=== PATIENT | male | born 1935 | race Caucasian/White ===

== ENCOUNTER → 2020-02-19 11:28 | Outpatient (CLI) | payer MEDICARE, SELFPAY ==
--- NOTE | 2020-02-19 11:33 | DI.RAD.S_ITS ---
PROCEDURE: XR LUMBAR SPINE MIN 4V INDICATIONS: update imaging TECHNIQUE: 5 views of the lumbar spine were acquired. COMPARISON: [facility], [place], XR LUMBAR SPINE WITH OBLIQUES, 02/08/2017, 9:06. FINDINGS: Bones: Kyphoplasty of the L2 vertebral body. Remaining vertebral body heights grossly preserved. Multilevel degenerative endplate sclerosis and spurring. Diffuse facet arthropathy. Moderate narrowing of the L5-S1 disc space. Diffuse mild narrowing of the remaining lumbar disc spaces. Soft tissues: Scattered vascular calcifications in the aorta. Oblique images: No pars defects. IMPRESSION: L2 kyphoplasty. Diffuse lumbar spondylosis with no definite interval change since 02/08/17. Multilevel facet arthropathy appears progressed. Dictated by: Brandon Hall M.D. on 02/19/2020 at 12:30 Approved by: Brandon Hall M.D. on 02/19/2020 at 12:33
== END ==
PROVIDERS: PCP Family Medicine; Referring Provider Physical Medicine & Rehabilitation; Visit Provider Physical Medicine & Rehabilitation
DX: M47.817 Spondylosis without myelopathy or radiculopathy, lumbosacral region (principal); M46.96 Unspecified inflammatory spondylopathy, lumbar region
CPT/HCPCS: 72110

== ENCOUNTER → 2020-05-05 14:30 | Outpatient (CLI) | payer MEDICARE, SELFPAY ==
[2020-05-05 16:28] LABS: COVID19 -Nasal RAPID Negative (Negative)
== END ==
PROVIDERS: PCP Family Medicine; Visit Provider Physical Medicine & Rehabilitation
DX: Z20.822 Contact with and (suspected) exposure to COVID-19 (principal)
CPT/HCPCS: 87635; C9803

== ENCOUNTER 2020-05-06 07:47 | Outpatient (CLI) | payer MEDICARE, SELFPAY ==
[2020-05-06] VITALS (9 sets, daily range): BP systolic 126–166; BP diastolic 68–86; PULSE 66–86; RESP 13–23; TEMP 36.3; O2SAT 96–100
--- NOTE | 2020-05-06 07:50 | DI.RAD.S_ITS ---
PROCEDURE: PAIN L/S FACET INJ/BLK 1ST CECILIA COMPARISON: None. INDICATIONS: SPONDYLOSIS Fluoroscopic spot filming was performed to verify placement of spinal needles at the L4-L5 and L5-S1 level(s), as labeled on the films. Appropriate location(s) of the needle tip(s) was confirmed by injection of iodinated contrast. Dictated by: Brandon Hall M.D. on 05/06/2020 at 10:45 Approved by: Brandon Hall M.D. on 05/06/2020 at 10:46
[2020-05-06] MEDS: MIDAZOLAM 5 MG/5 ML VIAL IV (09:20)
[2020-05-06] MEDS: BUPIVACAINE 0.5% (PF) VIAL 5 ML INJ (09:23)
[2020-05-06] MEDS: LIDOCAINE 1% 20 ML INJ (09:23)
[2020-05-06] MEDS: IOPAMIDOL 15 ML VIAL 3 ML INJ (09:24)
[2020-05-06] MEDS: BETAMETHASONE 30 MG/5 ML MDV 6 MG INJ (09:25)
--- NOTE | 2020-05-06 09:37 | P.PCN_ITS ---
Date/Time/Diagnoses Date of procedure: 05/06/20 Time of procedure: 09:37 Pre-procedure diagnosis: 1. FACET ARTHROPATHY 2. AXIAL LBP 3. MULTILEVEL DDD Post-procedure diagnosis: same Procedure Notes Procedure: 1. FLUOROSCOPICALLY GUIDED CONTRAST CONTROLLED FACET JOINT INJECTIONS BILATERAL L4/5, L5/S1 Indications: Alverto is referred by Dr. Vivar for treatment of Axial LBP Physician: Manpreet Concepcion Total Fluoroscopy time (seconds): 10 Total sedation minutes: 10 Complications: none Procedure in detail & Post-procedure care: FINDINGS Multilevel Facet Arthropathy with Clinically significant axial LBP DESCRIPTION OF PROCEDURE Fluoroscopically guided, contrast-controlled bilateral L4/5, L5/S1 facet joint injections. Following review of allergy and review of potential side effects and complications, including, but not necessarily limited to, infection, allergic reaction, local tissue breakdown, stroke, temporary or permanent nerve injury, paralysis, and possible , the patient indicated that the patient understood and agreed to proceed. An informed consent document was signed by the patient, witnessed by a nurse, and placed in the patient's chart. Additionally, other treatment options including medications, modalities, and physical therapy were reviewed with the patient. After review of previous anaesthesic history and IV conscious sedation the patient was deemed safe to proceed with today?s procedure with IV conscious sedation as ASA class II designation. Safety time-out was performed to confirm patient ID, procedure to be performed and site of procedure. IV sedation was accomplished with a combination of 2mg of Versed and 50mcg of Fentanyl was administered by the RN after DO order, titrated to patient comfort during the course of the procedure while the patient remained responsive to all verbal commands In the prone position, following sterile prep and drape of the lumbar region, the posterior aspect of the L4/5, L5/S1 facet joints were identified fluoroscopically. The skin was anesthetized via a 25-gauge 1.5inch needle with 1% lidocaine solution into the corresponding facet joints. At this point, a 22- gauge 3.5-inch spinal needle was atraumatically introduced and advanced under fluoroscopic guidance into the corresponding facet joints. Following negative aspiration, injections of approximately 0.2cc of Isovue 200 confirmed i nterarticular placement without vascular uptake. The identical procedure was then performed at the L4/5, L5/S1 facet joints on the left. Radiological data, including multiple fluoroscopic views of the lumbosacral spine, reveal a spinal needle at the L4/5, L5/S1 facet joints bilaterally. Subsequent views show flow of contrast material both superiorly and inferiorly within the joint space without vascular or intrathecal uptake. At this point, a total of 0.5cc including a mixture of 0.25cc Marcaine and 0.25cc betamethasone was injected without complication into each of the corresponding facet joints. The patient tolerated the procedure well without signs or symptoms of complications prior to transfer to the recovery area continued monitoring without incident. The patient was then transferred to the recovery area where they were observed for an appropriate period of time after the injection. The patient reported a VAS score of 7 prior to the procedure and a post- procedure VAS of 0. POST OP INSTRUCTIONS The patient was provided a Pain Log to continue to record their response to the target-specific procedure prior to follow-up visit with their referring physician. Additionally, specific post-injection care instructions and a contact number to our office were provided if concerns arise regarding possible complications associated with the procedure are suspected.
== END 2020-05-06 09:50 | disposition home or self-care (01) ==
LOC: RAD 07:49
PROVIDERS: PCP Family Medicine; Referring Provider Family Medicine; Visit Provider Physical Medicine & Rehabilitation
DX: M47.816 Spondylosis without myelopathy or radiculopathy, lumbar region (principal); M47.817 Spondylosis without myelopathy or radiculopathy, lumbosacral region; M51.36 Other intervertebral disc degeneration, lumbar region; M51.37 Other intervertebral disc degeneration, lumbosacral region; M54.5 Low back pain
CPT/HCPCS: 64493; 64494; 99152; J0702; J2250; J3010

== ENCOUNTER → 2020-08-04 09:34 | Outpatient (CLI) | payer MEDICARE, SELFPAY ==
[2020-08-04 12:57] LABS: COVID19 -Nasal RAPID Negative (Negative)
== END ==
PROVIDERS: PCP Family Medicine; Visit Provider Student in an Organized Health Care Education/Training Program
DX: Z20.822 Contact with and (suspected) exposure to COVID-19 (principal); Z01.812 Encounter for preprocedural laboratory examination
CPT/HCPCS: 87635; C9803

== ENCOUNTER 2020-08-05 12:26 | Outpatient (CLI) | payer MEDICARE, SELFPAY ==
[2020-08-05] VITALS (8 sets, daily range): BP systolic 138–159; BP diastolic 73–96; PULSE 66–74; RESP 16–25; TEMP 36.8; O2SAT 95–97
--- NOTE | 2020-08-05 12:28 | DI.RAD.S_ITS ---
PROCEDURE: PAIN L INTERLAMINAR/CAUDAL INJ INDICATIONS: SPONDYLOSIS COMPARISON: [facility], [place], PAIN L/S FACET INJ/BLK 1ST CECILIA, 05/06/2020, 9:20. FINDINGS: Fluoroscopic spot filming was performed to verify placement of a spinal needle. The images are labeled as L5-S1, although by anatomic landmarks, this appears to be at the L4-L5 level. Please correlate with intraprocedural findings. Appropriate location(s) of the needle tip(s) was confirmed by injection of iodinated contrast. IMPRESSION: Lower lumbar spine epidural steroid injection. Dictated by: Mars Winston M.D. on 08/05/2020 at 16:12 Approved by: Mars Winston M.D. on 08/05/2020 at 16:14
--- NOTE | 2020-08-05 12:41 | PC.NURSE ---
Pt took 325mg ASA two days ago. Aware of instructions given prior to procedure. Notified on admission paperwork for Dr Concepcion.
[2020-08-05] MEDS: MIDAZOLAM 5 MG/5 ML VIAL IV (13:15)
[2020-08-05] MEDS: fentaNYL 100 MCG/2 ML INJ 50 MCG IV (13:15)
[2020-08-05] MEDS: BUPIVACAINE 0.25% (PF) VIAL 2 ML INJ (13:19)
[2020-08-05] MEDS: IOPAMIDOL 15 ML VIAL 3 ML INJ (13:19)
[2020-08-05] MEDS: DEXAMETHASONE 10 MG/ML VIAL 20 MG INJ (13:19)
[2020-08-05] MEDS: methylPREDNISolone acetate 80 MG/ML VIAL INJ (13:20)
--- NOTE | 2020-08-05 13:26 | PM.PROC.IR.1 ---
Date/Time/Diagnoses Date of procedure: 08/05/20 Time of procedure: 13:26 Pre-procedure diagnosis: 1. HNP WITH RADICULAR FEATURES, 2. MULTILEVEL CENTRAL STENOSIS, Post-procedure diagnosis: same Procedure Notes Procedure: 1. FLUOROSCOPICALLY GUIDED CONTRAST CONTROLLED INTERLAMINAR EPIDURAL STEROID INJECTION - L5/S1 Indications: Alverto is referred by Dr. Vivar for treatment of Bilateral Foraminal Stenosis L>R LE symptoms. Physician: Manpreet Concepcion Total Fluoroscopy time (seconds): 9 Total sedation minutes: 9 Complications: none Procedure in detail & Post-procedure care: FINDINGS Multilevel Central Spinal Stenosis with Nerve Root Compression DESCRIPTION OF PROCEDURE Fluoroscopically guided, contrast-controlled L5/S1 translaminar epidural steroid injection. Following review of allergy and review of potential side effects and complications, including, but not necessarily limited to, infection, allergic reaction, local tissue breakdown, temporary as well as permanent nerve injury, paralysis, stroke and possible , the patient indicated that the patient understood and agreed to proceed. An informed consent document was signed by the patient, witnessed by a nurse, and placed in the patient's chart. Additionally, other treatment options including modalities, medications, and physical therapy were reviewed with the patient. After review of previous anaesthesic history and IV conscious sedation the patient was deemed safe to proceed with today?s procedure with IV conscious sedation as ASA class II designation. Safety time-out was performed to confirm patient ID, procedure to be performed and site of procedure. IV sedation was accomplished with a combination of 2mg of Versed and 50mcg of Fentanyl administered by the RN after DO order, titrated to patient comfort during the course of the procedure while the patient remained responsive to all verbal commands. In the prone position, following sterile prep and drape of the lumbar region, the L5/S1 translaminar space was identified fluoroscopically. The skin was anesthetized via a 25-gauge, 1.5-inch needle with 1% lidocaine solution. At this point, a 22-gauge short bevel spinal needle was atraumatically introduced and advanced under fluoroscopic guidance into the region of the L5/S1 translaminar space. Depth was confirmed on lateral view. Radiological data, including multiple fluoroscopic views of the lumbar spine, reveal a spinal needle at the L5/S1 translaminar space. Lateral views then show placement of the needle in the epidural space. Subsequent views show contrast material flowing superiorly and inferiorly in the epidural space. No vascular or intrathecal uptake is observed. At this point, using loss of resistance technique with saline and air, the epidural space was entered. This was confirmed following negative aspiration with injection of approximately 1.5cc of Isovue 200, showing excellent epidural flow without vascular or intrathecal uptake. At this point, 1 cc of 1% lidocaine solution combined with 3cc or 20mg of dexamethasone and 80mg of depo medrol was injected without incident. The patent tolerated the procedure without signs of symptoms of complications prior to transfer to the recovery area for further monitoring. The patient was then transferred to the recovery area where they were observed for an appropriate period of time after the injection. The patient reported a VAS score of 6 prior to the procedure and a post-procedure VAS of 0. POST OP INSTRUCTIONS The patient was provided a Pain Log to continue to record their response to the target-specific procedure prior to follow-up visit with their referring physician. Additionally, specific post-injection care instructions and a contact number to our office were provided if concerns arise regarding possible complications associated with the procedure are suspected.
== END 2020-08-05 13:50 | disposition home or self-care (01) ==
LOC: RAD 12:28
PROVIDERS: PCP Family Medicine; Referring Provider Physical Medicine & Rehabilitation; Visit Provider Physical Medicine & Rehabilitation
DX: M51.26 Other intervertebral disc displacement, lumbar region (principal); M48.07 Spinal stenosis, lumbosacral region
CPT/HCPCS: 62323; J0702; J1040; J1100; J2250; J3010

== ENCOUNTER → 2021-01-05 10:53 | Outpatient (CLI) | payer MEDICARE, SELFPAY ==
[2021-01-05 12:51] LABS: COVID19 -Nasal RAPID Negative (Negative)
== END ==
PROVIDERS: PCP Family Medicine; Visit Provider Physical Medicine & Rehabilitation
DX: Z20.822 Contact with and (suspected) exposure to COVID-19 (principal)
CPT/HCPCS: 87635; C9803

== ENCOUNTER 2021-01-06 09:50 | Outpatient (CLI) | payer MEDICARE, SELFPAY ==
[2021-01-06] VITALS (7 sets, daily range): BP systolic 136–156; BP diastolic 78–90; PULSE 70–102; RESP 16–23; TEMP 36.3–36.4; O2SAT 95–98
--- NOTE | 2021-01-06 09:52 | DI.RAD.S_ITS ---
PROCEDURE: PAIN L INTERLAMINAR/CAUDAL INJ INDICATIONS: SPONDYLOSIS COMPARISON: [facility], XA, PAIN L INTERLAMINAR/CAUDAL INJ, 08/05/2020, 13:20. FINDINGS: Fluoroscopic spot filming was performed to verify placement of a spinal needle at the L5-S1 level, as labeled on the films. Appropriate location of the needle tip was confirmed by injection of iodinated contrast. IMPRESSION: No significant intraprocedural abnormality. Dictated by: Mars Winston M.D. on 01/06/2021 at 11:03 Approved by: Mars Winston M.D. on 01/06/2021 at 11:04
[2021-01-06] MEDS: fentaNYL 100 MCG/2 ML INJ 50 MCG IV (11:19)
[2021-01-06] MEDS: MIDAZOLAM 5 MG/5 ML VIAL IV (11:19)
--- NOTE | 2021-01-06 11:31 | PM.PROC.IR.1 ---
Date/Time/Diagnoses Date of procedure: 01/06/21 Time of procedure: 11:31 Pre-procedure diagnosis: 1. HNP WITH RADICULAR FEATURES, 2. MULTILEVEL CENTRAL STENOSIS, Post-procedure diagnosis: same Procedure Notes Procedure: 1. FLUOROSCOPICALLY GUIDED CONTRAST CONTROLLED INTERLAMINAR EPIDURAL STEROID INJECTION - L5/S1 Indications: Alverto is referred by Dr. Vivar for treatment of Bilateral Foraminal Stenosis L>R LE symptoms. Physician: Manpreet Concepcion Total Fluoroscopy time (seconds): 5 Total sedation minutes: 9 Complications: none Procedure in detail & Post-procedure care: FINDINGS Multilevel Central Spinal Stenosis with Nerve Root Compression DESCRIPTION OF PROCEDURE Fluoroscopically guided, contrast-controlled L5/S1 translaminar epidural steroid injection. Following review of allergy and review of potential side effects and complications, including, but not necessarily limited to, infection, allergic reaction, local tissue breakdown, temporary as well as permanent nerve injury, paralysis, stroke and possible , the patient indicated that the patient understood and agreed to proceed. An informed consent document was signed by the patient, witnessed by a nurse, and placed in the patient's chart. Additionally, other treatment options including modalities, medications, and physical therapy were reviewed with the patient. After review of previous anaesthesic history and IV conscious sedation the patient was deemed safe to proceed with today?s procedure with IV conscious sedation as ASA class II designation. Safety time-out was performed to confirm patient ID, procedure to be performed and site of procedure. IV sedation was accomplished with a combination of 2mg of Versed and 50mcg of Fentanyl administered by the RN after DO order, titrated to patient comfort during the course of the procedure while the patient remained responsive to all verbal commands. In the prone position, following sterile prep and drape of the lumbar region, the L5/S1 translaminar space was identified fluoroscopically. The skin was anesthetized via a 25-gauge, 1.5-inch needle with 1% lidocaine solution. At this point, a 22-gauge short bevel spinal needle was atraumatically introduced and advanced under fluoroscopic guidance into the region of the L5/S1 translaminar space. Depth was confirmed on lateral view. Radiological data, including multiple fluoroscopic views of the lumbar spine, reveal a spinal needle at the L5/S1 translaminar space. Lateral views then show placement of the needle in the epidural space. Subsequent views show contrast material flowing superiorly and inferiorly in the epidural space. No vascular or intrathecal uptake is observed. At this point, using loss of resistance technique with saline and air, the epidural space was entered. This was confirmed following negative aspiration with injection of approximately 1.5cc of Isovue 200, showing excellent epidural flow without vascular or intrathecal uptake. At this point, 1 cc of 1% lidocaine solution combined with 4cc or 20mg of dexamethasone and 12mg of betamethasone was injected without incident. The patent tolerated the procedure without signs of symptoms of complications prior to transfer to the recovery area for further monitoring. The patient was then transferred to the recovery area where they were observed for an appropriate period of time after the injection. The patient reported a VAS score of 6 prior to the procedure and a post-procedure VAS of 0. POST OP INSTRUCTIONS The patient was provided a Pain Log to continue to record their response to the target-specific procedure prior to follow-up visit with their referring physician. Additionally, specific post-injection care instructions and a contact number to our office were provided if concerns arise regarding possible complications associated with the procedure are suspected.
[2021-01-06] MEDS: IOPAMIDOL 15 ML VIAL 3 ML INJ (11:59)
[2021-01-06] MEDS: BUPIVACAINE 0.25% (PF) VIAL 2 ML INJ (12:00)
[2021-01-06] MEDS: BETAMETHASONE 30 MG/5 ML MDV 12 MG INJ (12:00)
[2021-01-06] MEDS: DEXAMETHASONE 10 MG/ML VIAL 20 MG INJ (12:01)
== END 2021-01-06 11:50 | disposition home or self-care (01) ==
LOC: RAD 09:51
PROVIDERS: PCP Family Medicine; Referring Provider Physical Medicine & Rehabilitation; Visit Provider Physical Medicine & Rehabilitation
DX: M51.17 Intervertebral disc disorders with radiculopathy, lumbosacral region (principal); M48.07 Spinal stenosis, lumbosacral region
CPT/HCPCS: 62323; J0702; J1100; J2250; J3010

== ENCOUNTER → 2022-04-28 11:00 | Outpatient (CLI) | payer MEDICARE, SELFPAY ==
--- NOTE | 2022-04-28 11:01 | DI.RAD.S_ITS ---
PROCEDURE: XR LUMBAR SPINE MIN 4V INDICATIONS: BACK PAIN TECHNIQUE: 5 views of the lumbar spine were acquired, including bilateral oblique views. COMPARISON: [facility], , XR LUMBAR SPINE MIN 4V, 02/19/2020, 11:35. FINDINGS: Bones: 5 nonrib-bearing vertebrae are present. Slight leftward curvature. L2 kyphoplasty. Moderate disc height loss at L5-S1, mild at remaining levels. Facet arthrosis L4 through S1. Soft tissues: Overlying bowel gas pattern is normal. No suspicious soft tissue calcifications. Oblique images: No pars defects. IMPRESSION: 1. No acute, displaced fracture or traumatic subluxation. 2. Age related, moderate degenerative disc disease and facet arthrosis. Dictated by: Davon King M.D. on 04/28/2022 at 11:33 Approved by: Davon King M.D. on 04/28/2022 at 11:35
== END ==
PROVIDERS: PCP Family Medicine; Referring Provider Physical Medicine & Rehabilitation; Visit Provider Physical Medicine & Rehabilitation
DX: M47.816 Spondylosis without myelopathy or radiculopathy, lumbar region (principal); M47.817 Spondylosis without myelopathy or radiculopathy, lumbosacral region; M51.26 Other intervertebral disc displacement, lumbar region; M51.36 Other intervertebral disc degeneration, lumbar region; M75.41 Impingement syndrome of right shoulder; S32.020S Wedge compression fracture of second lumbar vertebra, sequela
CPT/HCPCS: 72110; 99213

== ENCOUNTER 2022-09-11 12:48 | Emergency (ER) | payer MEDICARE, SELFPAY ==
[2022-09-11] VITALS (15 sets, daily range): BP systolic 126–157; BP diastolic 71–99; PULSE 65–90; RESP 12–24; TEMP 36.4; O2SAT 97–100; BMI 24.7
--- NOTE | 2022-09-11 13:03 | DI.RAD.S_ITS ---
PROCEDURE: XR CHEST 1V INDICATIONS: chest pain TECHNIQUE: One view of the chest was acquired. COMPARISON: None. FINDINGS: Surgical changes and devices: None. Lungs and pleura: Lungs are clear. No pleural effusions or pneumothorax. Mediastinum: Mediastinal contours appear normal. Heart size is normal. Bones and chest wall: Remote right-sided rib fractures are seen. IMPRESSION: No acute cardiopulmonary abnormality. Dictated by: Michael Carlisle M.D. on 09/11/2022 at 14:23 Approved by: Michael Carlisle M.D. on 09/11/2022 at 14:24
[2022-09-11 13:33] LABS: Add Manual Diff / Slide Review NO; Basophils Absolute Auto 0 /uL (0-100); Basophils Percent Auto 0.6 % (0-2); Eosinophils Absolute Auto 200 /uL (0-450); Eosinophils Percent Auto 4.3 % (2-4); Hematocrit 42.3 % (41-53); Hemoglobin 14.7 g/dL (13.5-17.5); Lymphocytes Absolute Auto 700 /uL (1100-4500); Mean Corpuscular HGB Conc 34.8 % (30-36); Mean Corpuscular Hemoglobin 28.8 PG (26-34); Mean Corpuscular Volume 82.8 fL (80-100); Monocytes Absolute Auto 600 /uL (0-900); Monocytes Percent Auto 14.3 % (3-14); Neutrophils Absolute Auto 2800 /uL (1500-7000); Neutrophils Percent Auto 63.8 % (50-75); Platelet Count 112 X10^3/uL (150-400); Red Blood Cell Count 5.11 X10^6/uL (4.5-5.9); Red Cell Distribution Width 15.6 % (11.6-14.8); White Blood Cell Count 4.4 X10^3/uL (4.5-11.0)
[2022-09-11 13:36] LABS: INR 1.7 (0.9-1.3); Prothrombin Time 19.7 SECONDS (10.1-12.7)
[2022-09-11 13:38] LABS: PTT Partial Thromboplastin Tim 36 SECONDS (26-36)
[2022-09-11 13:41] LABS: Alanine Aminotransferase 19 IU/L (<50); Albumin 3.9 g/dL (3.5-5.0); Albumin Globulin Ratio 1.6 (1.0-2.8); Alkaline Phosphatase 59 U/L (38-126); Aspartate Aminotransferase 24 IU/L (17-59); BUN Creatinine Ratio 18.8 (6-22); Bilirubin Total 1.7 mg/dL (0.2-1.3); Blood Urea Nitrogen 19 mg/dL (9-20); Calcium 8.9 mg/dL (8.4-10.2); Carbon Dioxide 22 mmol/L (22-32); Chloride 105 mmol/L (98-107); Creatine Kinase 42 U/L (55-170); Estimated Glomerular Filt Rate > 60 mL/min (>60); Globulin 2.5 g/dL (1.7-4.1); Glucose 130 mg/dL (80-110); HEMOLYSIS < 15 (0-50); Lipase 33 U/L (23-300); Magnesium 2.1 mg/dL (1.6-2.3); Potassium 3.7 mmol/L (3.4-5.1); Sodium 137 mmol/L (137-145); Total Protein 6.4 g/dL (6.3-8.2)
[2022-09-11 13:53] LABS: Troponin I < 0.012 ng/mL (0.01-0.034)
[2022-09-11 14:05] LABS: NT-proBNP (BNP-Adult 18+) 1650 pg/mL (<450)
--- NOTE | 2022-09-11 15:16 | ED_ITS ---
HPI - Chest Pain General Chief Complaint: Shortness of Breath/Dyspnea Stated Complaint: Chest pain, SOB x2 days Time Seen by Provider: 09/11/22 13:43 Source: patient Mode of arrival: Family Vehicle Limitations: no limitations History of Present Illness HPI narrative: Patient is a 87-year-old male history of atrial fibrillation on Eliquis, hypertension, hyperlipidemia presenting today with ongoing back and chest pain. He reports that it started around the he was actually seen evaluated at [facility] on September 09. I have records I have reviewed them they did a full workup including CT angio chest abdomen pelvis. He says that the pain has gotten worse. Rubbing around the right side unable to lay on his back because it hurts. The rash on his back has been there but it seems to have spread. Denies fever chills. No shortness of breath just in quite a bit of pain. Related Data Home Medications Medication Instructions Recorded Confirmed aspirin 81 mg tablet,delayed 81 mg PO DAILY 03/28/20 11/18/21 release (Adult Aspirin Regimen) amlodipine 10 mg tablet 10 mg PO DAILY 09/26/20 11/18/21 azelastine 137 mcg (0.1 %) nasal 1 spray intranasal ONCE 11/18/21 11/18/21 spray aerosol clobetasol 0.05 % scalp solution 1 applic topical BEDTIME 11/18/21 11/18/21 ketoconazole 2 % shampoo 1 applic topical Q2W 11/18/21 11/18/21 mirabegron 25 mg tablet,extended 25 mg PO DAILY 11/18/21 11/18/21 release 24 hr (Myrbetriq) tamsulosin 0.4 mg capsule 0.4 mg PO BEDTIME 11/18/21 11/18/21 apixaban 5 mg tablet (Eliquis) 5 mg PO DAILY 04/28/22 04/28/22 atorvastatin 40 mg tablet 40 mg PO BEDTIME 04/28/22 04/28/22 carvedilol 3.125 mg tablet 3.125 mg PO DAILY 04/28/22 04/28/22 losartan 50 mg tablet 50 mg PO DAILY 04/28/22 04/28/22 nitroglycerin 0.4 mg sublingual 0.4 mg sublingual Q5-15M 04/28/22 04/28/22 tablet Previous Rx's Medication Instructions Recorded methocarbamol 500 mg tablet 500 mg PO TID PRN spasms #30 tabs 06/22/22 acyclovir 800 mg tablet 800 mg PO 5XD #35 tabs 09/11/22 gabapentin 300 mg capsule 300 mg PO BEDTIME #30 caps 09/11/22 hydrocodone 5 mg-acetaminophen 325 1 tab PO Q6H PRN pain #10 tabs 09/11/22 mg tablet lidocaine 5 % topical patch 1 patch topical DAILY PRN pain 09/11/22 (scale score 4-6) #30 ea prednisone 20 mg tablet 40 mg PO DAILY #10 tabs 09/11/22 Allergies Allergy/AdvReac Type Severity Reaction Status Date / Time sodium phentonac AdvReac Mild hostile Uncoded 09/11/22 13:02 Review of Systems Review of Systems ROS Unobtainable: All systems reviewed & are unremarkable except as noted in HPI and below Patient History Medical History Facet arthropathy, lumbar Herniated nucleus pulposus, lumbar Social History Smoking Status: Former smoker Smoking Status: Former smoker alcohol intake frequency: 0-2 drinks per day Substance Use Type: does not use Exam Initial Vital Signs Initial Vital Signs: Vital Signs Temperature 97.5 F L 09/11/22 12:55 Pulse Rate 90 09/11/22 12:55 Respiratory Rate 18 09/11/22 12:55 Blood Pressure 130/71 09/11/22 12:55 Pulse Oximetry 100 09/11/22 12:55 Oxygen Delivery Method Room Air 09/11/22 12:55 GENERAL: Alert 87-year-old male appears uncomfortable and in no acute distress. HEENT: Head atraumatic,EOMI, pupils reactive, face symmetric, moist mucous membranes CARDIOVASCULAR: Regular rate and rhythm without murmurs, rubs or gallops. RESPIRATORY: Breath sounds equal bilaterally, no wheezes rales or rhonchi. ABDOMEN: Soft, nontender. Normoactive bowel sounds all 4 quadrants. No guarding or rebound. EXTREMITIES: Normal range of motion, no clubbing or edema. Neurovascularly intact NEUROLOGICAL: Alert and oriented x4. SKIN: Vesicular erythematous like lesion fall along right chest and right back along dermatome T1 also extends right arm Course Orders Ordered: ED Orders 09/11/22 13:03 XR chest 1V Stat 09/11/22 13:09 EKG-12 Lead Stat 09/11/22 13:22 BNP [NT-proBNP (BNP-Adult 18+)] Stat Complete Blood Count AUTO DIFF Stat Comprehensive Metabolic Panel Stat Lipase Stat Magnesium Stat PTT Partial Thromboplastin Baldo Stat Prothrombin Time INR Stat Troponin & CK Cardiac Panel Stat Discontinued Medications Hydrocodone Bitart/Acetaminophen (Hydrocodone/Acet 5/325 Tablet) 1 tab PO NOW ONE Stop: 09/11/22 16:05 Last Admin: 09/11/22 16:07 Dose: 1 tab Documented By: TE Aspirin (Aspirin 81 Mg Chew Tab) 324 mg PO NOW ONE Stop: 09/11/22 13:04 Last Admin: 09/11/22 13:45 Dose: Not Given Documented By: TE Morphine Sulfate (Morphine 2 Mg/Ml Inj) 2 mg IV NOW ONE Stop: 09/11/22 15:19 Last Admin: 09/11/22 15:21 Dose: 2 mg Documented By: TE Vital Signs Vital signs: Vital Signs - 8 hr 09/11/22 12:55 09/11/22 13:17 09/11/22 13:19 Temperature 97.5 F L Pulse Rate 90 73 Respiratory Rate 18 20 Blood Pressure 130/71 157/81 H Pulse Oximetry 100 98 Oxygen Delivery Method Room Air 09/11/22 13:19 09/11/22 13:30 09/11/22 13:30 Temperature Pulse Rate 81 67 Respiratory Rate 20 13 Blood Pressure 134/80 Pulse Oximetry 97 97 Oxygen Delivery Method 09/11/22 13:45 09/11/22 13:45 09/11/22 14:00 Temperature Pulse Rate 66 Respiratory Rate 19 Blood Pressure 135/83 149/86 H Pulse Oximetry 97 Oxygen Delivery Method 09/11/22 14:00 09/11/22 14:15 09/11/22 14:15 Temperature Pulse Rate 65 69 Respiratory Rate 12 13 Blood Pressure 147/87 H Pulse Oximetry 98 98 Oxygen Delivery Method 09/11/22 14:30 09/11/22 14:30 09/11/22 14:40 Temperature Pulse Rate 70 Respiratory Rate 14 Blood Pressure 126/86 156/99 H Pulse Oximetry 97 Oxygen Delivery Method 09/11/22 14:40 09/11/22 14:45 09/11/22 14:45 Temperature Pulse Rate 66 68 Respiratory Rate 20 14 Blood Pressure 139/76 Pulse Oximetry 97 97 Oxygen Delivery Method 09/11/22 15:00 09/11/22 15:00 09/11/22 15:15 Temperature Pulse Rate 74 Respiratory Rate 24 Blood Pressure 155/74 H 140/78 Pulse Oximetry 97 Oxygen Delivery Method 09/11/22 15:15 09/11/22 15:25 09/11/22 15:25 Temperature Pulse Rate 81 77 Respiratory Rate 15 21 Blood Pressure 153/85 H Pulse Oximetry 98 98 Oxygen Delivery Method 09/11/22 15:30 09/11/22 15:30 09/11/22 15:45 Temperature Pulse Rate 70 Respiratory Rate 14 Blood Pressure 139/87 145/79 H Pulse Oximetry 97 Oxygen Delivery Method 09/11/22 15:45 Temperature Pulse Rate 73 Respiratory Rate 21 Blood Pressure Pulse Oximetry 98 Oxygen Delivery Method MDM - Chest Pain Lab Data 09/11/22 13:22 09/11/22 13:22 Labs: Lab Results 09/11/22 09/11/22 09/11/22 Range/Units 13:22 13:22 13:22 WBC 4.4 L (4.5-11.0) X10^3/uL RBC 5.11 (4.5-5.9) X10^6/uL Hgb 14.7 (13.5-17.5) g/dL Hct 42.3 (41-53) % MCV 82.8 (80-100) fL MCH 28.8 (26-34) PG MCHC 34.8 (30-36) % RDW 15.6 H (11.6-14.8) % Plt Count 112 L (150-400) X10^3/uL Neut % (Auto) 63.8 (50-75) % Lymph % (Auto) 17.0 L (25-40) % [place] % (Auto) 14.3 H (3-14) % Eos % (Auto) 4.3 H (2-4) % Baso % (Auto) 0.6 (0-2) % Neut # (Auto) 2800 (0927-4324) /uL Lymph # (Auto) 700 L (4263-7607) /uL [place] # (Auto) 600 (0-900) /uL Eos # (Auto) 200 (0-450) /uL Baso # (Auto) 0 (0-100) /uL PT 19.7 H (10.1-12.7) SECONDS INR 1.7 H (0.9-1.3) APTT 36 (26-36) SECONDS Sodium 137 (137-145) mmol/L Potassium 3.7 (3.4-5.1) mmol/L Chloride 105 (98-107) mmol/L Carbon Dioxide 22 (22-32) mmol/L BUN 19 (9-20) mg/dL Creatinine 1.01 (0.66-1.25) mg/dL Estimated GFR > 60 (>60) mL/min BUN/Creatinine Ratio 18.8 (6-22) Glucose 130 H (80-110) mg/dL Calcium 8.9 (8.4-10.2) mg/dL Magnesium 2.1 (1.6-2.3) mg/dL Total Bilirubin 1.7 H (0.2-1.3) mg/dL AST 24 (17-59) IU/L ALT 19 (<50) IU/L Alkaline Phosphatase 59 (38-126) U/L Total Creatine Kinase 42 L (55-170) U/L Troponin I < 0.012 (0.01-0.034) ng/mL NT-Pro-B Natriuret Pep (<450) pg/mL Total Protein 6.4 (6.3-8.2) g/dL Albumin 3.9 (3.5-5.0) g/dL Globulin 2.5 (1.7-4.1) g/dL Albumin/Globulin Ratio 1.6 (1.0-2.8) Lipase 33 (23-300) U/L 09/11/22 Range/Units 13:22 WBC (4.5-11.0) X10^3/uL RBC (4.5-5.9) X10^6/uL Hgb (13.5-17.5) g/dL Hct (41-53) % MCV (80-100) fL MCH (26-34) PG MCHC (30-36) % RDW (11.6-14.8) % Plt Count (150-400) X10^3/uL Neut % (Auto) (50-75) % Lymph % (Auto) (25-40) % [place] % (Auto) (3-14) % Eos % (Auto) (2-4) % Baso % (Auto) (0-2) % Neut # (Auto) (2893-6521) /uL Lymph # (Auto) (7540-5263) /uL [place] # (Auto) (0-900) /uL Eos # (Auto) (0-450) /uL Baso # (Auto) (0-100) /uL PT (10.1-12.7) SECONDS INR (0.9-1.3) APTT (26-36) SECONDS Sodium (137-145) mmol/L Potassium (3.4-5.1) mmol/L Chloride (98-107) mmol/L Carbon Dioxide (22-32) mmol/L BUN (9-20) mg/dL Creatinine (0.66-1.25) mg/dL Estimated GFR (>60) mL/min BUN/Creatinine Ratio (6-22) Glucose (80-110) mg/dL Calcium (8.4-10.2) mg/dL Magnesium (1.6-2.3) mg/dL Total Bilirubin (0.2-1.3) mg/dL AST (17-59) IU/L ALT (<50) IU/L Alkaline Phosphatase (38-126) U/L Total Creatine Kinase (55-170) U/L Troponin I (0.01-0.034) ng/mL NT-Pro-B Natriuret Pep 1650 H (<450) pg/mL Total Protein (6.3-8.2) g/dL Albumin (3.5-5.0) g/dL Globulin (1.7-4.1) g/dL Albumin/Globulin Ratio (1.0-2.8) Lipase (23-300) U/L Urine Dip Bedside Urine Glucose Negative Bedside Urine Bilirubin - Negative Bedside Urine Ketone - Negative Urine Specific [place] 1.020 Bedside Urine Occult Blood - Negative Bedside Urine pH 6.0 Bedside Urine Protein +/- 15 Bedside Urine Urobilinogen - Negative Bedside Urine Nitrite - Negative Bedside Urine Leukocytes - Negative Esterase Imaging Data Chest x-ray: Radiologist's Impression: PROCEDURE:? XR CHEST 1V ? INDICATIONS:? chest pain ? TECHNIQUE:? One view of the chest was acquired.? ? COMPARISON:? None. ? FINDINGS:? ? Surgical changes and devices:? None.? ? Lungs and pleura:? Lungs are clear.? No pleural effusions or pneumothorax.? ? Mediastinum:? Mediastinal contours appear normal.? Heart size is normal.? ? Bones and chest wall:? Remote right-sided rib fractures are seen. ? IMPRESSION:? No acute cardiopulmonary abnormality. ? ? ? Dictated by: Michael Carlisle M.D. on 09/11/2022 at 14:23 ?? ECG Data Interpretation: Atrial fibrillation rate [address] changes, no priors to compare MDM Narrative Medical decision making narrative: Patient 87-year-old male presents today with ongoing chest pain history of a trial fibrillation. He had a full workup 2 days ago including chest abdomen pelvis. He was discharged home. Today it is very clear that he is a vesicular like rash long his chest and back which is causing his pain consistent with shingles. He is no evidence of sepsis or secondary infection. Blood work is overall reassuring he does have an elevated BNP of 16 50 but not having signs of congestive heart failure. No leukocytosis or fever no evidence of anemia or EDUARD. Patient will receive antivirals prednisone pain medication and supportive care. Discharge Plan Departure Patient Disposition: Home Clinical Impression: Shingles Instructions: DI for Shingles Activity Restrictions/Additional Instructions: *You have been diagnosed with shingles *What to do: So sorry that you have shingles. This will take a couple weeks before fully heals. *Continue to take medications as directed Acyclovir 800 mg 5 times a day for 7 days Prednisone 40 mg once a day for 5 days [place] 1 tablet every 6 hours if needed for severe pain Gabapentin 300 mg starting at nighttime (this can be titrated please talk to your provider) Lidocaine patch apply directly to area of pain leave for 12 hours then remove *Follow up with your primary care provider in 2-3 days or call [phone] *Return to ER if you should have increasing pain fever or any new, worsening or concerning symptoms CONTROLLED SUBSTANCE DISCHARGE (Narcotoic/benzodiazepine/Flexeril/Phenergan) 1. You have been prescribed narcotic medications, it does have acetaminophen/Tylenol/paracetamol in it, DO NOT TAKE MORE THAN 4,00mg in 24 jose rs of Tylenol. TRAMADOL DOES NOT CONTAIN TYLENOL 2. Please understand that we cannot provide further refills of narcotics, benzodiazepines or controlled substances through the ED and her pain management will need to be through your provider. 3. While on these medications you cannot drive or operate heavy machinery. 4. You cannot sign legal documents or perform any duties such as this. 5. As long as you're taking opiate pain medications he should also be taking a stool softener such as Colace, Dulcolax, MiraLAX or prune juice, to help avoid constipation. Prescriptions: New acyclovir 800 mg tablet 800 mg PO 5XD Qty: 35 0RF Rx Instructions: space evenly during waking hours prednisone 20 mg tablet 40 mg PO DAILY Qty: 10 0RF lidocaine 5 % adhesive patch,medicated 1 patch topical DAILY PRN (Reason: pain (scale score 4-6)) Qty: 30 0RF Rx Instructions: leave on most painful area for up to 12 hrs gabapentin 300 mg capsule 300 mg PO BEDTIME Qty: 30 0RF hydrocodone-acetaminophen 5-325 mg tablet 1 tab PO Q6H PRN (Reason: pain) Qty: 10 0RF No Action methocarbamol 500 mg tablet 500 mg PO TID PRN (Reason: spasms) Qty: 30 2RF aspirin [Adult Aspirin Regimen] 81 mg tablet,delayed release (DR/EC) 81 mg PO DAILY amlodipine 10 mg tablet 10 mg PO DAILY clobetasol 0.05 % solution 1 applic topical BEDTIME ketoconazole 2 % shampoo 1 applic topical Q2W Myrbetriq 25 mg tablet extended release 24 hr 25 mg PO DAILY azelastine 137 mcg (0.1 %) aerosol,spray 1 spray intranasal ONCE tamsulosin 0.4 mg capsule 0.4 mg PO BEDTIME Eliquis 5 mg tablet 5 mg PO DAILY nitroglycerin 0.4 mg tablet, sublingual 0.4 mg sublingual Q5-15M losartan 50 mg tablet 50 mg PO DAILY atorvastatin 40 mg tablet 40 mg PO BEDTIME carvedilol 3.125 mg tablet 3.125 mg PO DAILY Referrals: Praveen Vivar MD [Primary Care Provider] - Stand Alone Forms: Patient Portal/API
[2022-09-11] MEDS: MORPHINE 2 MG/ML INJ IV (15:21)
[2022-09-11] MEDS: HYDROCODONE/ACET 5/325 TABLET 1 TAB PO (16:07)
== END 2022-09-11 16:12 | disposition home or self-care (01) ==
PROVIDERS: Emergency Provider Emergency Medicine; PCP Family Medicine
DX: B02.9 Zoster without complications (principal); I48.91 Unspecified atrial fibrillation
CPT/HCPCS: 36415; 71045; 80053; 81003; 82550; 83690; 83735; 83880; 84484; 85025; 85610; 85730; 93005; 93010; 96374; 99284; J2270

== ENCOUNTER 2022-10-03 18:51 | Emergency (ER) | payer MEDICARE, SELFPAY ==
[2022-10-03] VITALS (9 sets, daily range): BP systolic 139–164; BP diastolic 84–92; PULSE 73–82; RESP 14; TEMP 36.4; O2SAT 95–99; BMI 24.8
--- NOTE | 2022-10-03 19:31 | PC.NURSE ---
Patient here for suspected food bolus found to be tolerating liquids [employer]ACH. Collected a urine sample that is tea colored, notified provider and now orders given and placed.
[2022-10-03 19:42] LABS: Add Manual Diff / Slide Review NO; Basophils Absolute Auto 0 /uL (0-100); Basophils Percent Auto 0.6 % (0-2); Eosinophils Absolute Auto 300 /uL (0-450); Eosinophils Percent Auto 3.4 % (2-4); Hematocrit 42.1 % (41-53); Hemoglobin 14.4 g/dL (13.5-17.5); Lymphocytes Absolute Auto 1500 /uL (1100-4500); Lymphocytes Percent Auto 19.1 % (25-40); Mean Corpuscular HGB Conc 34.3 % (30-36); Mean Corpuscular Hemoglobin 28.8 PG (26-34); Monocytes Absolute Auto 800 /uL (0-900); Neutrophils Absolute Auto 5200 /uL (1500-7000); Neutrophils Percent Auto 66.9 % (50-75); Platelet Count 147 X10^3/uL (150-400); Red Blood Cell Count 5.01 X10^6/uL (4.5-5.9); White Blood Cell Count 7.8 X10^3/uL (4.5-11.0)
[2022-10-03 19:45] LABS: Appearance Urine UA CLOUDY; Bilirubin Urine UA NEGATIVE (NEGATIVE); Color Urine UA RED; Glucose Urine UA NEGATIVE (Negative); Ketones Urine UA NEGATIVE (NEGATIVE); Leukocyte Esterase Urine UA NEGATIVE (NEGATIVE); Nitrite Urine UA NEGATIVE (Negative); Occult Blood Urine UA 3+ (Negative); Protein Urine UA 2+ (Negative); pH Urine UA 5.5 (4.5-8.0)
[2022-10-03 19:46] LABS: Creatine Kinase 42 U/L (55-170)
[2022-10-03 19:47] LABS: Alanine Aminotransferase 48 IU/L (<50); Albumin 4.1 g/dL (3.5-5.0); Albumin Globulin Ratio 1.5 (1.0-2.8); Alkaline Phosphatase 56 U/L (38-126); Aspartate Aminotransferase 40 IU/L (17-59); BUN Creatinine Ratio 20.5 (6-22); Blood Urea Nitrogen 24 mg/dL (9-20); Calcium 8.8 mg/dL (8.4-10.2); Carbon Dioxide 24 mmol/L (22-32); Chloride 102 mmol/L (98-107); Estimated Glomerular Filt Rate > 60 mL/min (>60); Globulin 2.8 g/dL (1.7-4.1); Glucose 114 mg/dL (80-110); HEMOLYSIS < 15 (0-50); Lipase 44 U/L (23-300); Potassium 3.7 mmol/L (3.4-5.1); Sodium 134 mmol/L (137-145); Total Protein 6.9 g/dL (6.3-8.2)
[2022-10-03 19:48] LABS: Bacteria Urine None Seen; Culture Indicated Urine Cult Not Indicated; RBC Urine >100/HPF (0-5/HPF); Squamous Epithelial Cell Urine None Seen (0-5/HPF); WBC Urine None Seen (0-5/HPF)
--- NOTE | 2022-10-03 20:57 | ED.SKABFB ---
HPI - Skin/Abscess/Foreign Bdy General Chief complaint: Skin/Abscess/Foreign Body Stated complaint: something stuck in throat/cant swallow Time Seen by Provider: 10/03/22 19:37 Source: patient Mode of arrival: Family Vehicle Limitations: no limitations History of Present Illness HPI narrative: 87-year-old male with history of atrial fibrillation on Eliquis, hypertension, dyslipidemia with active shingles who is currently on acyclovir, taking [place], gabapentin lidocaine patch presents after eating bread and feeling like it got stuck. Patient told his she states for about 10 minutes he was complaining she had him drank water, coke swell as warm water he was able to do all of this. He had some applesauce here in the department and he states it feels like it is gone away. He has not had any fevers. Besides this episode no chest pain or shortness of breath, no cold cough or congestion. No nausea or vomiting no abdominal back or flank pain, no dysuria urgency or frequency. No issues with bowel movements. While here he had urine sample that he gave that was quite dark. Patient and have not noticed this at home. He is on apixaban daily. He has not had any issues with hematuria that they are aware. Related Data Home Medications Medication Instructions Recorded Confirmed aspirin 81 mg tablet,delayed 81 mg PO DAILY 03/28/20 11/18/21 release (Adult Aspirin Regimen) amlodipine 10 mg tablet 10 mg PO DAILY 09/26/20 11/18/21 azelastine 137 mcg (0.1 %) nasal 1 spray intranasal ONCE 11/18/21 11/18/21 spray aerosol clobetasol 0.05 % scalp solution 1 applic topical BEDTIME 11/18/21 11/18/21 ketoconazole 2 % shampoo 1 applic topical Q2W 11/18/21 11/18/21 mirabegron 25 mg tablet,extended 25 mg PO DAILY 11/18/21 11/18/21 release 24 hr (Myrbetriq) tamsulosin 0.4 mg capsule 0.4 mg PO BEDTIME 11/18/21 11/18/21 apixaban 5 mg tablet (Eliquis) 5 mg PO DAILY 04/28/22 04/28/22 atorvastatin 40 mg tablet 40 mg PO BEDTIME 04/28/22 04/28/22 carvedilol 3.125 mg tablet 3.125 mg PO DAILY 04/28/22 04/28/22 losartan 50 mg tablet 50 mg PO DAILY 04/28/22 04/28/22 nitroglycerin 0.4 mg sublingual 0.4 mg sublingual Q5-15M 04/28/22 04/28/22 tablet Previous Rx's Medication Instructions Recorded methocarbamol 500 mg tablet 500 mg PO TID PRN spasms #30 tabs 06/22/22 acyclovir 800 mg tablet 800 mg PO 5XD #35 tabs 09/11/22 gabapentin 300 mg capsule 300 mg PO BEDTIME #30 caps 09/11/22 hydrocodone 5 mg-acetaminophen 325 1 tab PO Q6H PRN pain #10 tabs 09/11/22 mg tablet lidocaine 5 % topical patch 1 patch topical DAILY PRN pain 09/11/22 (scale score 4-6) #30 ea prednisone 20 mg tablet 40 mg PO DAILY #10 tabs 09/11/22 Allergies Allergy/AdvReac Type Severity Reaction Status Date / Time sodium phentonac AdvReac Mild hostile Uncoded 10/03/22 19:06 Review of Systems Review of Systems ROS Unobtainable: All systems reviewed & are unremarkable except as noted in HPI and below Patient History Medical History Facet arthropathy, lumbar Herniated nucleus pulposus, lumbar Social History Smoking Status: Former smoker Smoking Status: Former smoker tobacco type: cigarettes alcohol intake frequency: 0-2 drinks per day Substance Use Type: does not use Exam Narrative Exam Narrative: GENERAL: Alert and oriented x three, well-nourished male in mild distress. HEENT: Head normocephalic, atraumatic, EOMI, pupils reactive, face symmetric, moist mucous membranes NECK: Supple, full range of motion CARDIOVASCULAR: Regular rate and rhythm without murmurs, rubs or gallops. No JVD. No swelling bilateral lower extremities. RESPIRATORY: Breath sounds equal bilaterally, no wheezes rales or rhonchi. No tachypnea or accessory muscle use ABDOMEN: Soft, nontender. Normoactive bowel sounds all 4 quadrants. No guarding or rebound, rigidity, no mass : No CVA tenderness EXTREMITIES: Normal range of motion, no clubbing or edema. Neurovascularly intact NEUROLOGICAL: Cranial nerves II through XII grossly intact. Moving all extremities SKIN: Warm, dry, no petechiae, no rashes or lesions. Initial Vital Signs Initial Vital Signs: Vital Signs Temperature 97.5 F L 10/03/22 18:55 Pulse Rate 77 10/03/22 18:55 Respiratory Rate 14 10/03/22 18:55 Blood Pressure 164/84 H 10/03/22 18:55 Pulse Oximetry 99 10/03/22 18:55 Oxygen Delivery Method Room Air 10/03/22 18:55 Course Orders Ordered: Discontinued Medications Hydrocodone Bitart/Acetaminophen (Hydrocodone/Acet 5/325 Tablet) 1 tab PO NOW ONE Stop: 10/03/22 21:07 Last Admin: 10/03/22 21:14 Dose: 1 tab Documented By: FAIZAN Gabapentin (Gabapentin 300 Mg Capsule) 300 mg PO NOW ONE Stop: 10/03/22 21:07 Last Admin: 10/03/22 21:14 Dose: 300 mg Documented By: FAIZAN Vital Signs Vital signs: Vital Signs - 8 hr 10/03/22 18:55 10/03/22 19:00 10/03/22 19:01 Temperature 97.5 F L Pulse Rate 77 Respiratory Rate 14 Blood Pressure 164/84 H 164/84 H Pulse Oximetry 99 97 Oxygen Delivery Method Room Air 10/03/22 19:01 10/03/22 19:29 10/03/22 19:29 Temperature Pulse Rate 79 73 Respiratory Rate Blood Pressure 153/89 H Pulse Oximetry 98 98 Oxygen Delivery Method 10/03/22 19:30 10/03/22 19:31 10/03/22 19:31 Temperature Pulse Rate 75 76 Respiratory Rate Blood Pressure 140/92 H Pulse Oximetry 98 98 Oxygen Delivery Method 10/03/22 20:01 10/03/22 20:02 10/03/22 20:02 Temperature Pulse Rate 82 79 Respiratory Rate Blood Pressure 145/86 H Pulse Oximetry 98 95 Oxygen Delivery Method 10/03/22 20:23 10/03/22 20:23 Temperature Pulse Rate 77 Respiratory Rate Blood Pressure 139/87 Pulse Oximetry 98 Oxygen Delivery Method MDM - Skin/Abscess/Foreign Bdy Lab Data 10/03/22 19:06 10/03/22 19:06 Labs: Lab Results 10/03/22 10/03/22 10/03/22 Range/Units 19:06 19:06 19:06 WBC 7.8 (4.5-11.0) X10^3/uL RBC 5.01 (4.5-5.9) X10^6/uL Hgb 14.4 (13.5-17.5) g/dL Hct 42.1 (41-53) % MCV 84.0 (80-100) fL MCH 28.8 (26-34) PG MCHC 34.3 (30-36) % RDW 16.0 H (11.6-14.8) % Plt Count 147 L (150-400) X10^3/uL Neut % (Auto) 66.9 (50-75) % Lymph % (Auto) 19.1 L (25-40) % Sebastian % (Auto) 10.0 (3-14) % Eos % (Auto) 3.4 (2-4) % Baso % (Auto) 0.6 (0-2) % Neut # (Auto) 5200 (2929-3204) /uL Lymph # (Auto) 1500 (0021-6524) /uL Sebastian # (Auto) 800 (0-900) /uL Eos # (Auto) 300 (0-450) /uL Baso # (Auto) 0 (0-100) /uL Sodium 134 L (137-145) mmol/L Potassium 3.7 (3.4-5.1) mmol/L Chloride 102 (98-107) mmol/L Carbon Dioxide 24 (22-32) mmol/L BUN 24 H (9-20) mg/dL Creatinine 1.17 (0.66-1.25) mg/dL Estimated GFR > 60 (>60) mL/min BUN/Creatinine Ratio 20.5 (6-22) Glucose 114 H (80-110) mg/dL Calcium 8.8 (8.4-10.2) mg/dL Total Bilirubin 2.0 H (0.2-1.3) mg/dL AST 40 (17-59) IU/L ALT 48 (<50) IU/L Alkaline Phosphatase 56 (38-126) U/L Total Creatine Kinase 42 L (55-170) U/L Total Protein 6.9 (6.3-8.2) g/dL Albumin 4.1 (3.5-5.0) g/dL Globulin 2.8 (1.7-4.1) g/dL Albumin/Globulin Ratio 1.5 (1.0-2.8) Lipase 44 (23-300) U/L Urine Color Urine Appearance Urine pH (4.5-8.0) Ur Specific [place] (1.000-1.035) Urine Protein (Negative) Urine Glucose (UA) (Negative) g/dL Urine Ketones (NEGATIVE) Urine Occult Blood (Negative) Urine Nitrate (Negative) Urine Bilirubin (NEGATIVE) Urine Urobilinogen (0.2) E.U./dL Ur Leukocyte Esterase (NEGATIVE) Urine RBC (0-5/HPF) Urine WBC (0-5/HPF) Ur Squamous Epith Cells (0-5/HPF) Urine Bacteria (None) Ur Culture Indicated? 10/03/22 Range/Units 19:30 WBC (4.5-11.0) X10^3/uL RBC (4.5-5.9) X10^6/uL Hgb (13.5-17.5) g/dL Hct (41-53) % MCV (80-100) fL MCH (26-34) PG MCHC (30-36) % RDW (11.6-14.8) % Plt Count (150-400) X10^3/uL Neut % (Auto) (50-75) % Lymph % (Auto) (25-40) % Sebastian % (Auto) (3-14) % Eos % (Auto) (2-4) % Baso % (Auto) (0-2) % Neut # (Auto) (6015-5631) /uL Lymph # (Auto) (6194-1972) /uL Sebastian # (Auto) (0-900) /uL Eos # (Auto) (0-450) /uL Baso # (Auto) (0-100) /uL Sodium (137-145) mmol/L Potassium (3.4-5.1) mmol/L Chloride (98-107) mmol/L Carbon Dioxide (22-32) mmol/L BUN (9-20) mg/dL Creatinine (0.66-1.25) mg/dL Estimated GFR (>60) mL/min BUN/Creatinine Ratio (6-22) Glucose (80-110) mg/dL Calcium (8.4-10.2) mg/dL Total Bilirubin (0.2-1.3) mg/dL AST (17-59) IU/L ALT (<50) IU/L Alkaline Phosphatase (38-126) U/L Total Creatine Kinase (55-170) U/L Total Protein (6.3-8.2) g/dL Albumin (3.5-5.0) g/dL Globulin (1.7-4.1) g/dL Albumin/Globulin Ratio (1.0-2.8) Lipase (23-300) U/L Urine Color Red Urine Appearance Cloudy Urine pH 5.5 (4.5-8.0) Ur Specific [place] 1.020 (1.000-1.035) Urine Protein 2+ H (Negative) Urine Glucose (UA) Negative (Negative) g/dL Urine Ketones Negative (NEGATIVE) Urine Occult Blood 3+ H (Negative) Urine Nitrate Negative (Negative) Urine Bilirubin Negative (NEGATIVE) Urine Urobilinogen 1.0 (0.2) E.U./dL Ur Leukocyte Esterase Negative (NEGATIVE) Urine RBC >100/hpf H (0-5/HPF) Urine WBC None seen (0-5/HPF) Ur Squamous Epith Cells None seen (0-5/HPF) Urine Bacteria None seen (None) Ur Culture Indicated? Cult not indicated MDM Narrative Medical decision making narrative: 87-year-old male who had likely esophageal food bolus that has since passed. Patient is able to eat and drink without issue and after having some applesauce he no longer has a sensation. He does have active shingles he is having some pain from this. Was given his pain medications which he would missed a dose because he was here in the emergency department. He gave a urine sample was noted to have hematuria and it was dark they have not really appreciate this before. He is not having any infectious symptoms currently was sent for urine culture. Labs were obtained and show no changes to creatinine, CK is not elevated, hemoglobin is appropriate. BUN 24. Discharge Plan Departure Patient Disposition: Home Clinical Impression: Food impaction of esophagus, Hematuria Activity Restrictions/Additional Instructions: Follow-up with your physician regarding your hematuria. If your urine culture is negative and there is no signs of infection you do need to follow-up for cystoscopy for evaluation with urology. Urine culture takes approximately 48-72 hours to result, if this is positive we will call you. You can continue to eat and drink normally if you have recurrent episodes please return to the emergency department. Please return for fevers new chest pain, shortness of breath lightheadedness or passing out, new abdominal back or flank pain, inability to urinate, nausea or vomiting or other GI or urinary symptoms or other new or concerning changes. Prescriptions: No Action methocarbamol 500 mg tablet 500 mg PO TID PRN (Reason: spasms) Qty: 30 2RF acyclovir 800 mg tablet 800 mg PO 5XD Qty: 35 0RF Rx Instructions: space evenly during waking hours prednisone 20 mg tablet 40 mg PO DAILY Qty: 10 0RF lidocaine 5 % adhesive patch,medicated 1 patch topical DAILY PRN (Reason: pain (scale score 4-6)) Qty: 30 0RF Rx Instructions: leave on most painful area for up to 12 hrs gabapentin 300 mg capsule 300 mg PO BEDTIME Qty: 30 0RF hydrocodone-acetaminophen 5-325 mg tablet 1 tab PO Q6H PRN (Reason: pain) Qty: 10 0RF aspirin [Adult Aspirin Regimen] 81 mg tablet,delayed release (DR/EC) 81 mg PO DAILY amlodipine 10 mg tablet 10 mg PO DAILY clobetasol 0.05 % solution 1 applic topical BEDTIME ketoconazole 2 % shampoo 1 applic topical Q2W Myrbetriq 25 mg tablet extended release 24 hr 25 mg PO DAILY azelastine 137 mcg (0.1 %) aerosol,spray 1 spray intranasal ONCE tamsulosin 0.4 mg capsule 0.4 mg PO BEDTIME Eliquis 5 mg tablet 5 mg PO DAILY nitroglycerin 0.4 mg tablet, sublingual 0.4 mg sublingual Q5-15M losartan 50 mg tablet 50 mg PO DAILY atorvastatin 40 mg tablet 40 mg PO BEDTIME carvedilol 3.125 mg tablet 3.125 mg PO DAILY Referrals: Praveen Vivar MD [Primary Care Provider] - Stand Alone Forms: Patient Portal/API
[2022-10-03] MEDS: HYDROCODONE/ACET 5/325 TABLET 1 TAB PO (21:14)
[2022-10-03] MEDS: GABAPENTIN 300 MG CAPSULE PO (21:14)
== END 2022-10-03 21:31 | disposition home or self-care (01) ==
PROVIDERS: Emergency Provider Emergency Medicine; PCP Family Medicine
DX: T18.128A Food in esophagus causing other injury, initial encounter (principal); R31.9 Hematuria, unspecified
CPT/HCPCS: 36415; 80053; 81001; 82550; 83690; 85025; 87086; 99283; 99284

== ENCOUNTER 2022-10-12 16:30 | Emergency (ER) | payer MEDICARE, SELFPAY ==
[2022-10-12 16:34] VITALS: BP 138/80; PULSE 90; RESP 18; TEMP 36.7; O2SAT 98; BMI 24.4
--- NOTE | 2022-10-12 17:29 | PC.NURSE ---
Pt and family asked to speak with nurse about home pain management. Pt has had shingles for 2.5 wks and was informed to continue taking Tylenol and prescribed gabapentin along with the lidocaine patches. Both understood and are wanting to leave the ER to manage pain at home. Dr. Araujo and SAM Morgan informed.
== END 2022-10-12 17:33 | disposition left against medical advice (07) ==
PROVIDERS: Emergency Provider Emergency Medicine; PCP Family Medicine
DX: B02.9 Zoster without complications (principal)
CPT/HCPCS: 99281